=== PATIENT | male | born 1990 | race Caucasian/White ===

== ENCOUNTER 2017-03-10 18:13 | Emergency (ER) | payer MEDICAID, OTHER ==
[~2017-03-10] VITALS: Ht 175.3 cm; Wt 73.0 kg
[2017-03-10 18:36] VITALS: Ht 175.3 cm; Wt 73.0 kg
[2017-03-10] MEDS ORDERED: KETOROLAC 30 MG INJ IV STA (18:49)
[2017-03-10 19:08] LABS: ADD SCAN DIFF NO
[2017-03-10 19:10] LABS: ADD UMIC YES; URINE BILIRUBIN (Dip) NEGATIVE (NEGATIVE); URINE BLOOD (Dip) 1+ (NEGATIVE); URINE COLOR LT. YELLOW (YELLOW); URINE GLUCOSE (Dip) NEGATIVE (NEGATIVE); URINE KETONES (Dip) NEGATIVE (NEGATIVE); URINE LEUKOCYTE ESTERASE (Dip) NEGATIVE (NEGATIVE); URINE NITRITE (Dip) NEGATIVE (NEGATIVE); URINE TOTAL PROTEIN (Dip) NEGATIVE (NEGATIVE); URINE UROBILINOGEN (Dip) 0.2 E.U./dL (0.1-1.0)
[2017-03-10 19:12] LABS: BASOPHILS % 0.3 % (0.0-2.0); EOSINOPHILS # 0.1 10^3/ul (0.0-0.5); EOSINOPHILS % 0.9 % (0.0-7.0); HEMOGLOBIN 14.8 g/dl (14.0-18.0); LYMPHOCYTES # 1.4 10^3/ul (0.8-2.9); LYMPHOCYTES % 15.8 % (15.0-51.0); MEAN CORPUSCULAR HEMOGLOBIN 31.3 pg (29.0-33.0); MEAN CORPUSCULAR HGB CONC 35.2 g/dl (32.0-37.0); MEAN CORPUSCULAR VOLUME 88.8 fl (82.0-101.0); MEAN PLATELET VOLUME 11.6 fl (7.4-10.4); MONOCYTE # 0.5 10^3/ul (0.3-0.9); MONOCYTES % 5.3 % (0.0-11.0); NEUTROPHIL # 6.7 10^3/ul (1.6-7.5); NEUTROPHILS % 77.4 % (39.0-77.0); PLATELET COUNT 280 10^3/UL (140-415); RED BLOOD COUNT 4.73 10^6/ul (4.70-6.10); RED CELL DISTRIBUTION WIDTH 12.7 % (11.5-14.5); WHITE BLOOD COUNT 8.6 10^3/ul (4.8-10.8)
[2017-03-10 19:29] LABS: ALBUMIN 5.2 g/dl (3.3-4.9)
[2017-03-10 19:31] LABS: BILIRUBIN,INDIRECT 0.5 mg/dl (0-1.1); BILIRUBIN,TOTAL 0.5 mg/dl (0.2-1.3); CREATININE 0.89 mg/dl (0.61-1.24)
[2017-03-10 19:32] LABS: ALBUMIN/GLOBULIN RATIO 1.73; CALCIUM 10.2 mg/dl (8.4-10.2); TOTAL PROTEIN 8.2 g/dl (6.1-8.1)
--- NOTE | 2017-03-10 19:40 | RADRPT ---
PROCEDURE: CT Abdomen and Pelvis without contrast CLINICAL INDICATION: Right flank pain TECHNIQUE: Transaxial images were obtained through the abdomen and pelvis on a multi-slice scanner without the intravenous contrast administration. No oral contrast had previously been given. Sagit chepe and coronal re-formations were subsequently reconstructed. One or more of the following dose reduction techniques were used: - Automated exposure control. - Adjustment of the mA and/or kV according to patient size. - Use of iterative reconstruction technique. Radiation dose: CTDIvol = 7.72 mGy; DLP = 449.51 mGy-cm. COMPARISON: No prior studies are available for comparison. FINDINGS: Lung bases: The visualized lung bases appear unremarkable. Liver: The liver is mildly enlarged with no focal lesion identified. Gallbladder: The gallbladder is contracted giving the wall a thickened appearance. No radiopaque st one is identified. Bile ducts: The intra and extrahepatic bile ducts are normal in caliber. Pancreas: Appears normal with no mass or inflammation evident. Spleen: The spleen is upper normal in size. Adrenals: Normal with no mass identified. Kidneys, ureters and bladder: A 5.8 x 3.4 x 2.5 mm ureterolith is seen in the mid right ureter at th e level of L4 associated with mild right hydronephrosis and proximal hydroureter. A 4 mm nonobstruc ting nephrolith is seen within the superior pole of the left kidney. No renal mass or hydronephrosi s is seen on the left. The left ureter appears normal. The bladder is poorly distended. Reproductive organs: The prostate is not enlarged. Phleboliths are seen in the pelvis. Stomach and bowel: The stomach is moderately distended with food debris. There is no evidence of eleni wel obstruction or inflammation. Appendix: Portions of an unremarkable appearing vermiform appendix are evident. Peritoneum: No free intraperitoneal fluid or air is identified. Aorta: Normal in caliber with no aneurysmal dilatation. IVC: Unremarkable. Lymph nodes: A few tiny mesenteric and retroperitoneal nodes are identified. Osseous structures: The osseous elements appear intact. IMPRESSION: 1. 5.8 x 3.4 x 2.5 mm ureterolith is seen in the mid right ureter at the level of L4 associated wit h mild right hydronephrosis and proximal hydroureter. 2. A 4 mm nonobstructing nephrolith is seen in the superior pole of the left kidney but there is no evidence of urinary outflow obstruction on the left and the left ureter appears normal. The bladde r is poorly distended. 3. No evidence of bowel obstruction or inflammation. 4. Mild hepatomegaly with no focal lesion. 5. Contracted gallbladder with no gallstones or bile duct dilatation evident. Physician Serge Date Time Electronically viewed and signed by Eden Martin Physician on 03/10/2017 19:40 RH/
[2017-03-10] MEDS ORDERED: IBUP-1542 PO (19:53)
[2017-03-10] MEDS ORDERED: HYDR-906 PO (19:53)
[2017-03-10] MEDS ORDERED: TAMS-14 PO (19:54)
[2017-03-10 20:05] VITALS: BP 115/87; PULSE 78; RESP 20; TEMP 98.3
--- NOTE | 2017-03-10 20:15 | ERD ---
ER Documentation Chief Complaint Date/Time DATE: 03/10/17 TIME: 20:08 Chief Complaint right flank pain x 1 1/2 hour ago HPI Patient is a 26-year-old male with a past medical history of left temporal lithiasis who presents to the emergency department with right-sided flank pain times an hour and a half. Patient describes the pain to be sharp and constant in nature. Patient states pain is worse with any type of movement. Patient denies any trauma or heavy lifting. Patient denies any fevers, chills, nausea, vomiting, abdominal pain or diarrhea.. Patient denies any frequency, urgency, hematuria. No recent travel. No sick contacts. ROS All systems reviewed and are negative except as per history of present illness. Medications Home Meds Active Scripts Tamsulosin Hcl* (Flomax*) 0.4 Mg Cap.er.24h, 0.4 MG PO BID, #30 CAP Prov:SHELDON FERNANDEZ PA-C 03/10/17 Hydrocodone/Acetaminophen (Carson 5-325 Tablet) 1 Each Tablet, 1 TAB PO Q6H Y for PAIN, #7 TAB Prov:SHELDON FERNANDEZ PA-C 03/10/17 Ibuprofen* (Motrin*) 600 Mg Tab, 600 MG PO Q6, #30 TAB Prov:SHELDON FERNANDEZ PA-C 03/10/17 Allergies Allergies: Coded Allergies: cefaclor (Verified Allergy, Unknown, rash, 03/10/17) PMhx/Soc Medical and Surgical Hx: pt denies Surgical Hx Hx Miscellaneous Medical Probl: Yes (Kidney stones) Hx Alcohol Use: Yes (socially) Hx Substance Use: Yes (marijuana) Hx Tobacco Use: No Smoking Status: Never smoker Physical Exam Vitals Vital Signs Date Time Temp Pulse Resp B/P Pulse Ox O2 Delivery O2 Flow Rate FiO2 03/10/17 20:05 98.3 78 20 115/87 100 Room Air 03/10/17 18:36 99.2 76 20 128/75 100 Physical Exam GENERAL: Well-developed, well-nourished male. Appears in no acute distress. HEAD: Normocephalic, atraumatic. EYES: Pupils are equally reactive bilaterally. EOMs grossly intact. No conjunctival erythema. ENT: Moist mucous membranes. No uvula deviation. No kissing tonsils. NECK: Supple. No meningismus. Normal range of motion of the neck. LUNG: Clear to auscultation bilaterally. No rhonchi, wheezing, rales or coarse breath sounds. HEART: Regular rate and rhythm. No murmurs, rubs or gallops. ABDOMEN: No scars, ecchymosis or rashes noted. Soft, nontender, and nondistended. Positive bowel sounds in all four quadrants. No rebound tenderness , no guarding. (-) McBurney's point tenderness. R sided CVA tenderness. BACK: No midline tenderness. EXTREMITIES: Equal pulses bilaterally. No peripheral clubbing, cyanosis or edema. No unilateral leg swelling. NEUROLOGIC: Alert and oriented. Moving all four extremities without any difficulty. Normal speech. Steady gait. SKIN: Normal color. Warm and dry. No rashes or lesions. Result Diagram: 03/10/17190403/10/171904 Results 24 hrs Laboratory Tests Test 03/10/17 19:05 White Blood Count 8.610^3/ul Red Blood Count 4.7310^6/ul Hemoglobin 14.8g/dl Hematocrit 42.0% Mean Corpuscular Volume 88.8fl Mean Corpuscular Hemoglobin 31.3pg Mean Corpuscular Hemoglobin Concent 35.2g/dl Red Cell Distribution Width 12.7% Platelet Count 83837^3/UL Mean Platelet Volume 11.6fl Neutrophils % 77.4% Lymphocytes % 15.8% Monocytes % 5.3% Eosinophils % 0.9% Basophils % 0.3% Nucleated Red Blood Cells % 0.0/100WBC Neutrophils # 6.710^3/ul Lymphocytes # 1.410^3/ul Monocytes # 0.510^3/ul Eosinophils # 0.110^3/ul Basophils # 0.010^3/ul Nucleated Red Blood Cells # 0.010^3/ul Urine Color LT. YELLOW Urine Clarity CLEAR Urine pH 6.5 Urine Specific Deeth 1.015 Urine Ketones NEGATIVE Urine Nitrite NEGATIVE Urine Bilirubin NEGATIVE Urine Urobilinogen 0.2 E.U./dL Urine Leukocyte Esterase NEGATIVE Urine Microscopic RBC 10-25/HPF Urine Microscopic WBC NONE SEEN/HPF Urine Hemoglobin 1+ Urine Glucose NEGATIVE% Urine Total Protein NEGATIVE Sodium Level 146mmol/L Potassium Level 4.0mmol/L Chloride Level 108mmol/L Carbon Dioxide Level 31mmol/L Anion Gap 11 Blood Urea Nitrogen 18mg/dl Creatinine 0.89mg/dl Glucose Level 98mg/dl Calcium Level 10.2mg/dl Total Bilirubin 0.5mg/dl Direct Bilirubin 0.00mg/dl Indirect Bilirubin 0.5mg/dl Aspartate Amino Transf (AST/SGOT) 19IU/L Alanine Aminotransferase (ALT/SGPT) 32IU/L Alkaline Phosphatase 60IU/L Total Protein 8.2g/dl Albumin 5.2g/dl Globulin 3.00g/dl Albumin/Globulin Ratio 1.73 Lipase 43U/L Current Medications Medications (Trade) Dose Ordered Sig/Anu Route PRN Reason Start Time Stop Time Status Last Admin Dose Admin Ketorolac Tromethamine (Toradol) 30 mg ONCE STAT IV 03/10/17 18:49 03/10/17 18:51 DC 03/10/17 18:56 Procedures/MDM ED COURSE: The patient was stable throughout ED course. I kept the patient and/or family informed of laboratory and diagnostic imaging results throughout the ED course. DIAGNOSTIC IMAGING: Read by radiologist. Patient: KEITH BRISENO : 1990 Age: 26 Sex: M MR #: [id number] DOS: 03/10/17 1850 Ordering MD: SHELDON FERNANDEZ PA-C Location: [facility] Room/Bed: PROCEDURE: CT Abdomen and Pelvis without contrast CLINICAL INDICATION: Right flank pain TECHNIQUE: Transaxial images were obtained through the abdomen and pelvis on a multi-slice scanner without the intravenous contrast administration. No oral contrast had previously been given. Sagittal and coronal re-formations were subsequently reconstructed. One or more of the following dose reduction techniques were used: - Automated exposure control. - Adjustment of the mA and/or kV according to patient size. - Use of iterative reconstruction technique. Radiation dose: CTDIvol = 7.72 mGy; DLP = 449.51 mGy-cm. COMPARISON: No prior studies are available for comparison. FINDINGS: Lung bases: The visualized lung bases appear unremarkable. Liver: The liver is mildly enlarged with no focal lesion identified. Gallbladder: The gallbladder is contracted giving the wall a thickened appearance. No radiopaque stone is identified. Bile ducts: The intra and extrahepatic bile ducts are normal in caliber. Pancreas: Appears normal with no mass or inflammation evident. Spleen: The spleen is upper normal in size. Adrenals: Normal with no mass identified. Kidneys, ureters and bladder: A 5.8 x 3.4 x 2.5 mm ureterolith is seen in the mid right ureter at the level of L4 associated with mild right hydronephrosis and proximal hydroureter. A 4 mm nonobstructing nephrolith is seen within the superior pole of the left kidney. No renal mass or hydronephrosis is seen on the left. The left ureter appears normal. The bladder is poorly distended. Reproductive organs: The prostate is not enlarged. Phleboliths are seen in the pelvis. Stomach and bowel: The stomach is moderately distended with food debris. There is no evidence of bowel obstruction or inflammation. Appendix: Portions of an unremarkable appearing vermiform appendix are evident. Peritoneum: No free intraperitoneal fluid or air is identified. Aorta: Normal in caliber with no aneurysmal dilatation. IVC: Unremarkable. Lymph nodes: A few tiny mesenteric and retroperitoneal nodes are identified. Osseous structures: The osseous elements appear intact. IMPRESSION: 1. 5.8 x 3.4 x 2.5 mm ureterolith is seen in the mid right ureter at the level of L4 associated with mild right hydronephrosis and proximal hydroureter. 2. A 4 mm nonobstructing nephrolith is seen in the superior pole of the left kidney but there is no evidence of urinary outflow obstruction on the left and the left ureter appears normal. The bladder is poorly distended. 3. No evidence of bowel obstruction or inflammation. 4. Mild hepatomegaly with no focal lesion. 5. Contracted gallbladder with no gallstones or bile duct dilatation evident. Physician Serge Date Time Electronically viewed and signed by Physician Serge on 03/10/2017 19:40 RH/ CC: SHELDON FERNANDEZ PA-C MEDICATIONS GIVEN: Toradol Patient tolerated medication well with no adverse reactions. Patient reported improvement in pain. MEDICAL DECISION MAKING: Patient is a 26-year-old male with past medical history of lithiasis presents with right-sided flank pain 1.5 hours.. Vital signs were reviewed. Patient was afebrile. CBC showed no evidence of systemic infection or severe anemia. CMP showed no evidence of electrolyte abnormalities, severe acidosis, alkalosis, renal failure, or liver disease. Lipase showed no evidence of acute pancreatitis. UA showed 10-25 RBCs, 1+ hemoglobin. CT abdomen and pelvis showed 5.8 x 3.4 x 2.5 mm ureterolith is seen in the mid right ureter at the level of L4 associated with mild right hydronephrosis and proximal hydroureter. A 4 mm nonobstructing nephrolith is seen in the superior pole of the left kidney but there is no evidence of urinary outflow obstruction on the left and the left ureter appears normal. The bladder is poorly distended. No evidence of bowel obstruction or inflammation. Mild hepatomegaly with no focal lesion. Contracted gallbladder with no gallstones or bile duct dilatation evident. Given these findings, the patient's presentation is most consistent with nephrolithiasis and hepatomegaly. I have a much lower clinical concern for UTI, pyelonephritis, appendicitis, diverticulitis, constipation, pneumonia, bowel obstruction. At this time there is no indication for admission given the patient does not have a white count, has normal urinary output, normal kidney function and has no signs of an infected stone. PRESCRIPTIONS: Carson Ibuprofen Tamsulosin. DISCHARGE: At this time, patient is stable for discharge and outpatient management. Given a copy of all imaging and blood work obtained today. Patient was provided with referral information to see urologist given his history of ongoing kidney stones. Patient advised to drink plenty of fluids. I have instructed the patient to follow-up with his/her primary care physician in 1-2 days. I have instructed the patient to promptly return to the ER at any time for any new or worsening symptoms including increased increased pain, fever, nausea, vomiting, urinary changes or weakness. The patient and/or family expressed understanding of and agreement with this plan. All questions were answered. Home care instructions were provided. Departure Diagnosis: Primary Impression: Nephrolithiasis Additional Impression: Hepatomegaly Condition: Stable Patient Instructions: Kidney Stone W/ Colic Referrals: REN RADER MD,RHONDA ANDRES,GLEN YOUNG,JULIA BRUCE,DARLING FERNANDEZ MD= [facility] YOU HAVE RECEIVED A MEDICAL SCREENING EXAM AND THE RESULTS INDICATE THAT YOU DO NOT HAVE A CONDITION THAT REQUIRES URGENT TREATMENT IN THE EMERGENCY DEPARTMENT. FURTHER EVALUATION AND TREATMENT OF YOUR CONDITION CAN WAIT UNTIL YOU ARE SEEN IN YOUR DOCTORS OFFICE WITHIN THE NEXT 1-2 DAYS. IT IS YOUR RESPONSIBILITY TO MAKE AN APPOINTMENT FOR FOLOW-UP CARE. IF YOU HAVE A PRIMARY DOCTOR --you should call your primary doctor and schedule an appointment IF YOU DO NOT HAVE A PRIMARY DOCTOR YOU CAN CALL OUR PHYSICIAN REFERRAL HOTLINE AT IF YOU CAN NOT AFFORD TO SEE A PHYSICIAN YOU CAN CHOSE FROM THE FOLLOWING [facility] [address] [facility] [address] [facility] [facility] [address] [facility] [address] [facility] [address] [facility]. [facility] [address] [facility]. [facility] YOU HAVE RECEIVED A MEDICAL SCREENING EXAM AND THE RESULTS INDICATE THAT YOU DO NOT HAVE A CONDITION THAT REQUIRES URGENT TREATMENT IN THE EMERGENCY DEPARTMENT. FURTHER EVALUATION AND TREATMENT OF YOUR CONDITION CAN WAIT UNTIL YOU ARE SEEN IN YOUR DOCTORS OFFICE WITHIN THE NEXT 1-2 DAYS. IT IS YOUR RESPONSIBILITY TO MAKE AN APPOINTMENT FOR FOLOW-UP CARE. IF YOU HAVE A PRIMARY DOCTOR --you should call your primary doctor and schedule and appointment IF YOU DO NOT HAVE A PRIMARY DOCTOR YOU CAN CALL OUR PHYSICIAN REFERRAL HOTLINE AT . IF YOU CAN NOT AFFORD TO SEE A PHYSICIAN YOU CAN CHOSE FROM THE FOLLOWING [facility] INSTITUTIONS: [facility] [address] [place] [address] [facility] [address] [place] [address] [facility] [address] [place] [address] Additional Instructions: Call your primary care doctor TOMORROW for an appointment during the next 1-2 days.See the doctor sooner or return here if your condition worsens before your appointment time. Patient will need to follow-up with a neurologist/urologist for further management of his kidney stones. Plenty of fluids. Take pain medication as needed. SHELDON FERNANDEZ PA-C March 10, 2017 20:15
== END 2017-03-10 20:05 | disposition home or self-care (01) ==
LOC: FTE 18:13
DX: N20.0 Calculus of kidney (principal); R16.0 Hepatomegaly, not elsewhere classified
CPT/HCPCS: 36415; 74176; 80053; 81001; 83690; 85025; 96374; J1885; Z7502